=== PATIENT | female | born 1990 | race Caucasian/White ===

== ENCOUNTER 2019-01-21 23:02 | Emergency (ER) | payer OTHER ==
[~2019-01-21] VITALS: Ht 162.6 cm; Wt 49.9 kg
[~2019-01-21 23:02] MED LIST: ALBU8HFA2 INH; ALBU90OI INH; AZIT250 PO; AZIT500 PO; CIPR500 PO; CLIN150 PO; CLIN300 PO; Cleocin HCl150 MG PO; Flonase 0.05% N16 GM; HYDACE5 PO; HYDGUAL120 PO; IBUP400 PO; IBUP600 PO; MULVITMINE PO; Macrobid 100 M100 MG PO; NAPR500 PO; NITR100CA PO; Norco 10-325 T1 EACH PO; OXYACE5T PO; PHENA200 PO; PROM25 PO; PSEU120ER PO; Pyridium200 MG PO; RXCLIN PO; RXHYDACE PO; RXOXYACE PO; RXTRAM50 PO; SERT50 PO; SULTRIDS PO; SULTRISS PO; TETR250; TRAM50 PO
[2019-01-22 00:21] LABS: BASOPHILS ABSOLUTE AUTO 0.07 K/mm3 (0.00-0.23); BASOPHILS PERCENT AUTO 0 % (0-2); EOSINOPHILS ABSOLUTE AUTO 0.49 K/mm3 (0.00-0.68); EOSINOPHILS PERCENT AUTO 3 % (0-6); Hematocrit 40.9 % (33.0-51.0); Hemoglobin 13.1 g/dL (11.5-16.0); IMMATURE GRAN ABSOLUTE AUTO 0.08 K/mm3 (0.00-0.10); IMMATURE GRAN PERCENT AUTO 1 % (0-1); LYMPHOCYTES PERCENT AUTO 13 % (21-46); MONOCYTES PERCENT AUTO 7 % (4-13); Mean Corpuscular HGB 30.2 pg (26.0-34.0); Mean Corpuscular Volume 94 fL (80-100); Mean Platelet Volume 8.9 fL (9.1-12.4); NEUTROPHILS ABSOLUTE AUTO 11.96 K/mm3 (1.96-9.15); NEUTROPHILS PERCENT AUTO 76 % (41-73); Platelet Count 309 K/mm3 (150-400); RDW Coefficient Variation 13.2 % (11.7-14.2); RDW Standard Deviation 45.9 fL (35.1-46.3); Red Blood Cell Count 4.34 M/mm3 (3.80-5.20)
[2019-01-22 00:39] LABS: Alanine Aminotransfer (ALT/SGP 18 U/L (12-78); Albumin, Blood 3.6 g/dL (3.4-5.0); Albumin/Globulin Ratio 0.9 (0.8-1.8); Alk Phos 92 U/L (50-136); Anion Gap 7 mmol/L (6-16); Aspartate Aminotrans (AST/SGOT 13 U/L (12-37); Bilirubin, Total 0.2 mg/dL (0.1-1.0); Blood Urea Nitrogen 14 mg/dL (8-24); Bun/Creatinine Ratio 20.9 (12.0-20.0); CO2, Blood 26 mmol/L (21-32); Calcium, Blood 8.7 mg/dL (8.5-10.1); Chloride, Blood 109 mmol/L (98-108); Creatinine, Blood 0.67 mg/dL (0.40-1.00); Globulin, Blood 3.9 g/dL (2.2-4.0); Glomerular Filtration Rate >60 (60-); Glucose, Blood 109 mg/dL (70-99); Potassium, Blood 3.9 mmol/L (3.5-5.5); Sodium, Blood 142 mmol/L (136-145); Total Protein, Blood 7.5 g/dL (6.4-8.2)
[2019-01-22] MEDS ORDERED: CEPH500 PO (01:02)
[2019-01-22] MEDS ORDERED: Bactrim Ds Tab1 EACH PO (01:02)
== END 2019-01-22 01:13 | disposition home or self-care (01) ==
LOC: ER 23:02
PROVIDERS: Emergency Medicine
DX: L02.413 Cutaneous abscess of right upper limb (principal); L03.113 Cellulitis of right upper limb; Z88.0 Allergy status to penicillin; F17.200 Nicotine dependence, unspecified, uncomplicated
CPT/HCPCS: 10060; 80053; 85025; 99283-25

== ENCOUNTER 2023-10-23 10:47 | Emergency (ER) | payer OTHER ==
[~2023-10-23] VITALS: Ht 162.6 cm; Wt 45.4 kg
[~2023-10-23 10:47] MED LIST changes: +Bactrim Ds Tab1 EACH PO; +CEPH500 PO
[2023-10-23 11:08] VITALS: BP 129/88
[2023-10-23] MEDS ORDERED: CLIN150 PO (11:10)
== END 2023-10-23 11:13 | disposition home or self-care (01) ==
LOC: ER 10:47
DX: K04.7 Periapical abscess without sinus (principal); K02.9 Dental caries, unspecified; Z88.0 Allergy status to penicillin; Z79.899 Other long term (current) drug therapy
CPT/HCPCS: 99282

== ENCOUNTER 2024-12-26 08:53 | Emergency (ER) | payer OTHER ==
[~2024-12-26] VITALS: Ht 162.6 cm; Wt 49.9 kg
[~2024-12-26 08:53] MED LIST changes: +EUTHYROX50 MCG PO; +IBUP800 PO; +Robaxin750 MG PO
[2024-12-26 09:00] VITALS: BP 153/90
[2024-12-26] MEDS ORDERED: RX Prepack 2 Sprays Naloxone HCL 4 MG/SPRAY UD ONE (09:05)
== END 2024-12-26 09:31 | disposition home or self-care (01) ==
LOC: ER 08:53
DX: T40.601A Poisoning by unspecified narcotics, accidental (unintentional), initial encounter (principal); E03.9 Hypothyroidism, unspecified; Z79.899 Other long term (current) drug therapy; Z88.0 Allergy status to penicillin
CPT/HCPCS: A9270